=== PATIENT | female | born 1985 | race African-American/Black ===

== ENCOUNTER 2024-03-13 23:04 | Emergency (ER) | payer MEDICAID ==
[~2024-03-13] VITALS: Ht 162.6 cm; Wt 90.0 kg
[2024-03-13 23:07] VITALS: TEMP 99.1; O2SAT 99
[2024-03-14 00:58] LABS: CLARITY URINE TURBID (CLEAR); COLOR URINE DARK YELLOW (YELLOW); GLUCOSE URINE NEGATIVE (NEGATIVE); KETONES URINE NEGATIVE (NEGATIVE); LEUKOCYTE ESTERASE URINE 2+ (NEGATIVE); NITRITE URINE NEGATIVE (NEGATIVE); OCCULT BLOOD URINE TRACE (NEGATIVE); PH URINE 5.5 (4.5-8.0); PROTEIN URINE 1+ (NEGATIVE); SPECIFIC GRAVITY URINE 1.037 (1.005-1.030)
[2024-03-14] MEDS: CEFTRIAXONE SODIUM 1G VIAL IM ONE (01:15)
[2024-03-14] MEDS: LIDOCAINE HCL 1% 20ML VIAL (Pyxis) INJ INFIL ONE (01:15)
[2024-03-14] MEDS ORDERED: CLOT21CR4 VG (03:06)
[2024-03-14] MEDS ORDERED: DOXY100T28 MT (03:06)
[2024-03-14 03:45] VITALS: BP 145/77; PULSE 80; RESP 12
[2024-03-14 04:15] LABS: SQUAMOUS EPITHELIAL CELL URINE 3+ /lpf (RARE/1+); WBC URINE 15-25 /hpf (0-2)
[2024-03-14 04:16] LABS: BACTERIA URINE 2+; MUCUS URINE 2+ /lpf (< = 2+)
[2024-03-17 06:11] LABS: CHLAMYDIA TRACHOMATIS NAA Positive (Negative); NEISSERIA GONORRHOEAE NAA Negative (Negative)
== END 2024-03-14 03:46 | disposition home or self-care (01) ==
LOC: ER 23:04
DX: N72 Inflammatory disease of cervix uteri (principal); N39.0 Urinary tract infection, site not specified
CPT/HCPCS: 81025; 99284; 87491; 87591; 81003; 87086; 87210; 96372; J0696; J3490; Z7610; 99283